=== PATIENT | male | born 1995 | race Caucasian/White ===

== ENCOUNTER 2023-12-13 11:19 | Emergency (ER) | payer SELFPAY ==
[2023-12-13] VITALS (7 sets, daily range): BP systolic 118–144; BP diastolic 69–85; PULSE 81–85; RESP 20; TEMP 36.4; O2SAT 96–99
[2023-12-13 14:32] LABS: Basophils % 0.4 %; Eosinophils # 0.3 10^3/uL (0.0-0.8); Eosinophils % 2.7 %; Hematocrit 46.1 % (37-53); Lymphocytes # 2.5 10^3/uL (0.8-4.8); Mean Corpuscular HGB Conc 32.3 g/dL (30-55); Mean Corpuscular Hemoglobin 29.5 pg (27-33); Mean Corpuscular Volume 91.3 fl (82-101); Mean Platelet Volume 8.8 fL (7.4-10.4); Monocytes # 0.8 10^3/uL (0.2-0.9); Monocytes % 7.9 %; Neutrophils # 6.81 10^3/uL (1.8-7.7); Neutrophils % 64.5 %; Nucleated Red Blood Cells % 0 %; Platelet Count 347 10^3/cmm (157-399); Red Blood Count 5.05 10^6/uL (3.85-5.65); Red Cell Distribution Width 13.5 % (12.1-15.1); White Blood Count 10.54 10^3/uL (3.29-11.43)
[2023-12-13 14:53] LABS: Alanine Aminotransferase 42 U/L (0-41); Albumin Level 4.2 g/dL (3.5-5.2); Alkaline Phosphatase 107 U/L (40-130); Anion Gap 13.4 (5-19); Aspartate Amino Transferase 23 U/L (0-40); Blood Urea Nitrogen 11 mg/dL (6-20); Calcium 8.6 mg/dL (8.5-10.5); Carbon Dioxide 24 mmol/L (22-29); Chloride 104 mmol/L (98-107); Globulin 3.2 g/dL (1.3-4.6); Glomerular Filtration Rate 162.9 mL/min (90-130); Glucose 95 mg/dL (65-115); Osmolality Calculated 283 mOsm/kg (285-295); Potassium 4.4 mmol/L (3.5-5.1); Sodium 137 mmol/L (136-145); Total Bilirubin 0.2 mg/dL (0.15-1.2); Total Protein 7.4 g/dL (6.6-8.7)
--- NOTE | 2023-12-13 14:58 | W.ED.NAVMDI ---
HPI - Nausea/Vomiting/Diarrhea General: Chief complaint: Nausea/Vomiting/Diarrhea Stated complaint: Diarhea Time Seen by Provider: 12/13/23 14:39 History of Present Illness: 28-year-old male presents emergency room complaining of diarrhea for the last 6 days. No hematochezia or melena. He was on a course of antibiotics within the last month he does not recall exactly what the antibiotic was. Denies any fever sweats or chills. No cough or shortness of breath myalgias or headache associated with it. Associated symtoms: Denies chest pain or dysuria Related Data Allergies Allergy/AdvReac Type Severity Reaction Status Date / Time No Known Allergies Allergy Verified 12/13/23 11:38 Review of Systems Const: Denies: fever(s) or chills Card: Denies: chest pain Resp: Denies: dyspnea GI: Denies: abdominal pain : Denies: dysuria, urinary frequency or urinary urgency Musc: Denies: neck pain or back pain Skin/Breast: Denies: rash Physical Exam Const: GENERAL APPEARANCE: cooperative ORIENTATION/CONSCIOUSNESS: Yes awake, Yes oriented to person, Yes oriented to place and Yes oriented to time HENMT: COMMON NORMALS: normocephalic, atraumatic and hearing grossly normal bilaterally HEAD & SCALP: normocephalic and atraumatic Resp: COMMON NORMALS: normal respiratory effort, No retractions, No use of accessory muscles and clear to auscultation bilaterally AUSCULTATION: clear to auscultation bilaterally Cardio: COMMON NORMALS: regular rate, regular rhythm and No murmurs present (Cardio) RATE: regular rate RHYTHM: regular rhythm GI: COMMON NORMALS: Soft to palpation and No hepatosplenomegaly present AUSCULTATION: Yes normoactive bowel sounds PALPATION: Yes Soft to palpation, No Tenderness to palpation present (GI), No Guarding due to palpation present (GI) and Yes No hepatosplenomegaly present Extremity: COMMON NORMALS: normal to inspection, capillary refill normal, no clubbing, cyanosis or edema, no calf tenderness and no pedal edema Neuro: SENSORIUM/ORIENTATION: Yes oriented to person, Yes oriented to place and Yes oriented to time Skin: COMMON NORMALS: no rashes or lesions noted GENERAL SKIN EXAM: no rashes or lesions noted Course Vital Signs: Vital signs: Vital Signs Temperature 97.5 F L 12/13/23 11:32 Pulse Rate 84 12/13/23 17:02 Respiratory Rate 20 H 12/13/23 11:32 Blood Pressure 118/69 12/13/23 17:02 Pulse Oximetry 97 12/13/23 17:02 Oxygen Delivery Me thod Room Air 12/13/23 16:30 MDM - Nausea/Vomiting/Diarrhea Medical Decision Making No acute distress no leukocytosis. Electrolytes and renal function are normal. Patient reports continuous diarrhea for the last 6 days however he is unable to give a stool sample initially in the emergency room. Suspect this may be viral in nature he does live in a intermediate however. Will get stool samples to look for C. difficile as well as other infectious pathogens given his setting. Medical Records I reviewed the patient's medical records. Lab Data I reviewed the patient's lab results. 12/13/23 13:59 12/13/23 13:59 Laboratory Results WBC 10.54 10^3/uL (3.29-11.43) 12/13/23 13:59 RBC 5.05 10^6/uL (3.85-5.65) 12/13/23 13:59 Hgb 14.90 g/dL (11.27-16.99) 12/13/23 13:59 Hct 46.1 % (37-53) 12/13/23 13:59 MCV 91.3 fl (82-101) 12/13/23 13:59 MCH 29.5 pg (27-33) 12/13/23 13:59 MCHC 32.3 g/dL (30-55) 12/13/23 13:59 RDW 13.5 % (12.1-15.1) 12/13/23 13:59 Plt Count 347 10^3/cmm (157-399) 12/13/23 13:59 MPV 8.8 fL (7.4-10.4) 12/13/23 13:59 Neut % (Auto) 64.5 % 12/13/23 13:59 Lymph % (Auto) 24.0 % 12/13/23 13:59 Hood % (Auto) 7.9 % 12/13/23 13:59 Eos % (Auto) 2.7 % 12/13/23 13:59 Baso % (Auto) 0.4 % 12/13/23 13:59 Neut # (Auto) 6.81 10^3/uL (1.8-7.7) 12/13/23 13:59 Lymph # (Auto) 2.5 10^3/uL (0.8-4.8) 12/13/23 13:59 Hood # (Auto) 0.8 10^3/uL (0.2-0.9) 12/13/23 13:59 Eos # (Auto) 0.3 10^3/uL (0.0-0.8) 12/13/23 13:59 Baso # (Auto) 0.0 10^3/uL (0.0-0.1) 12/13/23 13:59 Nucleated RBC % (auto) 0 % 12/13/23 13:59 Nucleated RBCs # 0.0 /100WBC 12/13/23 13:59 Sodium 137 mmol/L (136-145) 12/13/23 13:59 Potassium 4.4 mmol/L (3.5-5.1) 12/13/23 13:59 Chloride 104 mmol/L (98-107) 12/13/23 13:59 Carbon Dioxide 24 mmol/L (22-29) 12/13/23 13:59 Anion Gap 13.4 (5-19) 12/13/23 13:59 BUN 11 mg/dL (6-20) 12/13/23 13:59 Creatinine 0.6 mg/dL (0.7-1.2) L 12/13/23 13:59 GFR Calculation 162.9 mL/min (90-130) H 12/13/23 13:59 Glucose 95 mg/dL (65-115) 12/13/23 13:59 Calculated Osmolality 283 mOsm/kg (285-295) L 12/13/23 13:59 Calcium 8.6 mg/dL (8.5-10.5) 12/13/23 13:59 Total Bilirubin 0.2 mg/dL (0.15-1.2) 12/13/23 13:59 AST 23 U/L (0-40) 12/13/23 13:59 ALT 42 U/L (0-41) H 12/13/23 13:59 Alkaline Phosphatase 107 U/L (40-130) 12/13/23 13:59 Total Protein 7.4 g/dL (6.6-8.7) 12/13/23 13:59 Albumin 4.2 g/dL (3.5-5.2) 12/13/23 13:59 Globulin 3.2 g/dL (1.3-4.6) 12/13/23 13:59 No radiology studies performed this visit Discharge Plan Discharge Patient Disposition: Home Clinical Impression: Diarrhea Condition: Stable Discharge Orders: Discharge ED (Routine); Ordered 12/13/23 Ordered By: Jonnie Arias Discharge Diet: Usual diet Discharge Activity: Resume usual activity Patient Instructions: Opioid Safety, Pain Management Activity Restrictions/Additional Instructions: Thank you for choosing [facility] for your healthcare needs today. It is very important that you follow up as instructed or that you return to the Emergency Department should you have concerns or if your condition changes or worsens in any way. You are seen in the emergency room with complaints of diarrhea for 6 days. We have ordered stool samples. Your chemistry studies and blood counts were normal. Your abdominal exam was normal. Recommend a full liquid diet avoid meats and dairy products until the stool samples are completed. If you begin to have blood in the stool you should be rechecked. Coding Level of Care Code ED Web Press Operator Assistant for Bryce Holder
[2023-12-13] MEDS: lactated ringers 1,000 ML 999 ML IV ×2 (15:23→16:41)
--- NOTE | 2023-12-13 17:01 | PC.NURSE ---
pt attempted to have bm, states unable to go. pt given a specimen cup with label to go home with, collect stool and bring back. pt voiced understanding.
== END 2023-12-13 17:04 | disposition home or self-care (01) ==
PROVIDERS: Emergency Medicine; Emergency Provider Family Medicine
DX: R19.7 Diarrhea, unspecified (principal)
CPT/HCPCS: 36415; 80053; 85025; 96360; 99284; J7120